=== PATIENT | female | born 1965 | race Caucasian/White ===

== ENCOUNTER 2016-12-04 15:57 | Emergency (ER) | payer MEDICAID, MEDICARE ==
[2016-12-04 16:56] LABS: Bilirubin Negative (Negative); Blood, Urine Negative (Negative); Clarity Slightly Cloudy (Clear); Glucose, Urine (Dipstick) Negative (Negative); Leukocyte Negative (Negative); Nitrite Negative (Negative); Protein, Urine (Dipstick) Negative (Neg-Trace); Specific Gravity, Urine 1.025 (1.005-1.030); Urobilinogen 0.2 mg/dL (0.2-1.0); pH, Urine 5.5 (5.0-9.0)
[2016-12-04] MEDS ORDERED: Ibuprofen 800 MG TAB ONE (17:25)
[2016-12-04] MEDS ORDERED: traMADol HCl 50 MG TAB ONE (17:25)
[2016-12-04] MEDS ORDERED: traMADol HCl 50 MG TAB PO SCH (17:30)
[2016-12-04] MEDS ORDERED: Ibuprofen 800 MG TAB PO SCH (17:30)
--- NOTE | 2016-12-04 17:42 | RAD ---
CHEST TWO VIEWS: Date: 12-04-16 Comparison: 04-19-16 FINDINGS: The heart seems slightly larger but still normal in size. There is no vascular congestion, edema, fo toi pulmonary infiltrate or effusion. At most, there might be a little atelectasis in the left costo phrenic angle. I see no pneumothorax. No fractures were appreciated at this time. Subtle rib fractur es could be easily missed on this study. IMPRESSION: No acute thoracic finding. POS: HOME
== END 2016-12-04 17:46 | disposition home or self-care (01) ==
LOC: BURERS 15:57
DX: S20.211A Contusion of right front wall of thorax, initial encounter (principal); I10 Essential (primary) hypertension; G43.909 Migraine, unspecified, not intractable, without status migrainosus; F31.9 Bipolar disorder, unspecified; W18.30XA Fall on same level, unspecified, initial encounter; Y93.02 Activity, running; Y99.8 Other external cause status
CPT/HCPCS: 71020; 81003

== ENCOUNTER 2017-04-27 14:03 | Emergency (ER) | payer MEDICARE ==
[2017-04-27 14:23] LABS: #Basophils 0.1 thou/uL (0.0-0.2); #Eosinphils 0.1 thou/uL (0.0-0.7); #Lymphocytes 2.6 thou/uL (1.20-3.40); #Monocytes 0.7 thou/uL (0.11-0.59); #Neutrophils 3.7 thou/uL (1.40-6.50); %Basophils 1.9 % (0.0-1.0); %Eosinophils 1.7 % (0.0-10.0); %Lymphocytes 35.8 % (21.0-51.0); %Monocytes 9.4 % (0.0-10.0); %Neutrophils 51.2 % (42.0-75.0); Hemoglobin 16.6 g/dL (12.0-16.0); Mean Corpuscular HGB CONC 34.4 g/dL (32.0-36.0); Mean Corpuscular Hemoglobin 31.2 pg (27.0-31.0); Mean Corpuscular Volume 90.8 fl (81.0-99.0); Mean Platelet Volume 6.8 fL (7.4-10.4); Platelet Count 307 thou/uL (130-400); RBC Distribution Width 11.4 % (11.5-14.5); Red Blood Cell (RBC) Count 5.32 mill/uL (4.20-5.40); White Blood Cell (WBC) Count 7.2 thou/uL (4.8-10.8)
[2017-04-27] MEDS ORDERED: Ondansetron HCl/PF 4 MG/2 ML Vial ONE (14:26)
[2017-04-27 14:37] LABS: ALT (SGPT) 19 U/L (8-55); AST (SGOT) 20 U/L (5-34); Albumin 4.1 g/dL (3.5-5.0); Alkaline Phosphatase 89 U/L (40-150); Anion Gap 12 mmol/L (10-20); BUN (Urea Nitrogen) 10 mg/dL (9.8-20.1); Bilirubin, Total 0.5 mg/dL (0.2-1.2); Calc. Creatinine Clearance 0 mL/min (70-130); Calcium 9.4 mg/dL (7.8-10.44); Carbon Dioxide 25 mmol/L (22-29); Chloride 106 mmol/L (98-107); Estimated GFR-MDRD 76; Globulin 3.4 g/dL (2.4-3.5); Glucose 68 mg/dL (70-105); Potassium 4.3 mmol/L (3.5-5.1); Protein, Total 7.5 g/dL (6.0-8.3); Sodium 139 mmol/L (136-145)
[2017-04-27 14:46] LABS: CKMB 0.4 ng/mL (0-6.6); Troponin I Less than 0.010 ng/mL (< 0.028)
[2017-04-27] MEDS ORDERED: Pantoprazole 40 MG VIAL ONE (15:50)
--- NOTE | 2017-04-27 16:14 | RAD ---
PORTABLE CHEST: Date: 04/27/17 An AP portable film at 1409 hours is compared with the 12/04/16 study. The heart remains normal in size and the lungs are clear. No infiltrate, effusion, or vascular conge stion seen. The mediastinum appears normal and the trachea is midline. IMPRESSION: No acute thoracic findings. POS: HOME
[2017-04-27 17:21] LABS: Troponin I Less than 0.010 ng/mL (< 0.028)
[2017-04-27] MEDS ORDERED: Lidocaine Viscous Sol 2% 15 ml UD Cup ONE (17:30)
[2017-04-27] MEDS ORDERED: Mag-Al Plus 1200 MG/1200 MG/120 MG/30 ML UDCUP ONE (17:30)
== END 2017-04-27 17:38 | disposition home or self-care (01) ==
LOC: BURERS 14:03
DX: R07.89 Other chest pain (principal); E66.9 Obesity, unspecified; I10 Essential (primary) hypertension; F41.9 Anxiety disorder, unspecified; F31.9 Bipolar disorder, unspecified; Z79.899 Other long term (current) drug therapy; Z87.442 Personal history of urinary calculi
CPT/HCPCS: 36415; 71010; 80053; 82553; 84484; 85025; 93005; 96365; 96375; C9113; J2405

== ENCOUNTER 2017-06-01 13:39 | Outpatient (CLI) | payer MEDICARE ==
--- NOTE | 2017-06-01 16:29 | RAD ---
THREE VIEWS OF THE LUMBAR SPINE 06/01/17 COMPARISON: None. HISTORY: Sacroiliitis. FINDINGS: Three views of the lumbosacral spine shows grade I retrolisthesis of L3 on L4. The intervertebral di scs are narrowed and moderate osteophytes are seen throughout the lumbar spine. Slight scoliotic cur vature of the spine is secondary to degenerative change. IMPRESSION: Moderate degenerative change of the lumbar spine without acute osseous abnormality. POS: [facility]
== END 2017-06-01 13:40 | disposition home or self-care (01) ==
LOC: BURRAD 13:39
PROVIDERS: ATTEND Nurse Practitioner
DX: M46.1 Sacroiliitis, not elsewhere classified (principal); M47.896 Other spondylosis, lumbar region
CPT/HCPCS: 72100

== ENCOUNTER 2017-11-07 13:23 | Emergency (ER) | payer MEDICARE | END 2017-11-07 14:07 | disposition home or self-care (01) | LOC: BURERS 13:23 | DX: R55 Syncope and collapse (principal); T44.7X5A Adverse effect of beta-adrenoreceptor antagonists, initial encounter; E66.9 Obesity, unspecified; F31.9 Bipolar disorder, unspecified; F41.9 Anxiety disorder, unspecified; I10 Essential (primary) hypertension; Z87.442 Personal history of urinary calculi; G43.909 Migraine, unspecified, not intractable, without status migrainosus ==

== ENCOUNTER 2018-03-23 18:23 | Emergency (ER) | payer MEDICARE ==
[2018-03-23] MEDS ORDERED: diphenhydrAMINE 50 MG/ML VIAL ONE (18:59)
== END 2018-03-23 19:32 | disposition home or self-care (01) ==
LOC: BURERS 18:23
DX: K90.49 Malabsorption due to intolerance, not elsewhere classified (principal); I10 Essential (primary) hypertension; G43.909 Migraine, unspecified, not intractable, without status migrainosus; E66.9 Obesity, unspecified; F41.9 Anxiety disorder, unspecified; F31.9 Bipolar disorder, unspecified
CPT/HCPCS: 96372; J1200

== ENCOUNTER 2019-02-09 20:07 | Emergency (ER) | payer MEDICARE ==
[2019-02-09] MEDS ORDERED: methylPREDNISolone Sod Succ/PF 125 MG/2 ML VIAL ONE (20:38)
[2019-02-09] MEDS ORDERED: traMADol HCl 50 MG TAB ONE (20:38)
== END 2019-02-09 20:52 | disposition home or self-care (01) ==
LOC: BURERS 20:07
DX: S39.012A Strain of muscle, fascia and tendon of lower back, initial encounter (principal); G43.909 Migraine, unspecified, not intractable, without status migrainosus; E66.9 Obesity, unspecified; I10 Essential (primary) hypertension; F31.9 Bipolar disorder, unspecified; F41.9 Anxiety disorder, unspecified; X58.XXXA Exposure to other specified factors, initial encounter
CPT/HCPCS: 96372; 99283; J2930

== ENCOUNTER 2019-02-14 17:34 | Emergency (ER) | payer MEDICARE ==
[2019-02-14 18:34] LABS: ALT (SGPT) 32 U/L (8-55); AST (SGOT) 25 U/L (5-34); Albumin 4.3 g/dL (3.5-5.0); Alkaline Phosphatase 91 U/L (40-150); Anion Gap 17 mmol/L (10-20); BUN (Urea Nitrogen) 12 mg/dL (9.8-20.1); Bilirubin, Total 0.8 mg/dL (0.2-1.2); Calc. Creatinine Clearance 0 mL/min (70-130); Carbon Dioxide 22 mmol/L (22-29); Chloride 103 mmol/L (98-107); Eosinophils 5 % (0-10); Estimated GFR-MDRD 69; Globulin 3.1 g/dL (2.4-3.5); Glucose 111 mg/dL (70-105); Hemoglobin 17.3 g/dL (12.0-16.0); Lymphocytes 29 % (21-51); MDiff Complete? YES; Mean Corpuscular HGB CONC 31.4 g/dL (32.0-36.0); Mean Corpuscular Hemoglobin 29.2 pg (27.0-31.0); Mean Corpuscular Volume 92.9 fL (78.0-98.0); Mean Platelet Volume 6.7 fL (7.4-10.4); Monocytes 7 % (0-10); Neutrophil 59 % (42-75); Platelet Count 322 thou/uL (130-400); Potassium 4.3 mmol/L (3.5-5.1); Protein, Total 7.4 g/dL (6.0-8.3); RBC Distribution Width 12.5 % (11.5-14.5); Red Blood Cell (RBC) Count 5.91 mill/uL (4.20-5.40); Sodium 138 mmol/L (136-145); White Blood Cell (WBC) Count 7.2 thou/uL (4.8-10.8)
== END 2019-02-14 19:23 | disposition home or self-care (01) ==
LOC: BURERS 17:34
DX: R55 Syncope and collapse (principal); I10 Essential (primary) hypertension; F41.9 Anxiety disorder, unspecified; F31.9 Bipolar disorder, unspecified; Z87.442 Personal history of urinary calculi; Z79.899 Other long term (current) drug therapy
CPT/HCPCS: 80053; 83605; 84484; 85025; 93005; 96360

== ENCOUNTER 2019-08-23 04:39 | Emergency (ER) | payer MEDICARE ==
[2019-08-23 04:56] LABS: Bilirubin Small (Negative); Blood, Urine Large (Negative); Clarity Turbid (Clear); Glucose, Urine (Dipstick) Negative (Negative); Leukocyte Negative (Negative); Nitrite Negative (Negative); Protein, Urine (Dipstick) 100 mg/dL (Neg-Trace)
[2019-08-23 05:00] LABS: Bacteria/HPF 1+ HPF (None Seen); RBC/HPF Greater than 50 HPF (0-3); Squamous Epithelial 0-3 HPF (0-3)
[2019-08-23] MEDS ORDERED: Ondansetron ODT 4 MG TAB ONE (05:22)
[2019-08-23] MEDS ORDERED: Fentanyl 100 MCG/2 ML VIAL ONE (05:27)
[2019-08-23] MEDS ORDERED: Ketorolac Tromethamine 30 MG/ML VIAL ONE (05:27)
[2019-08-23] MEDS ORDERED: Dicyclomine 20 MG TAB ONE (05:33)
--- NOTE | 2019-08-23 07:54 | CT ---
PRELIMINARY REPORT/[facility]/EMERGENCY AFTER HOURS PROCEDURE: EXAM: CT Abdomen and Pelvis Without Intravenous Contrast CLINICAL HISTORY: FLANK PAIN, HX OF KIDNEY STONES, TECHNIQUE: Axial computed tomography images of the abdomen and pelvis without intravenous contrast. CONTRAST: None. COMPARISON: None provided. FINDINGS: LUNG BASES: No basilar airspace consolidation or pleural effusion. LIVER: There is fatty infiltration of liver. GALLBLADDER AND BILE DUCTS: Gallbladder is absent. PANCREAS: Unremarkable. SPLEEN: Unremarkable. ADRENAL GLANDS: Unremarkable. KIDNEYS, URETERS, AND BLADDER: There are no renal calculi. There is mild right hydroureteronephrosis secondary to a 3 mm proximal ureteric calculus. Bladder is decompressed. STOMACH AND BOWEL: No intestinal obstruction. Gastric bypass surgery is present. APPENDIX: Appendix is within normal limits. PERITONEUM: No free fluid. No free air. LYMPH NODES: No lymphadenopathy. REPRODUCTIVE: Uterus is not identified. VASCULATURE: No aortic aneurysm. ABDOMINAL WALL AND SOFT TISSUES: There are at least 2 separate ventral hernias within the lower abdom en and pelvis. The more superior ventral hernia is bilobed in appearance and contains segment of simental sverse colon as well as fat. Within the anterior lower pelvis is fat-containing ventral hernia. BONES: No fracture or suspicious osseous abnormality. IMPRESSION: Mild right hydroureteronephrosis secondary to a 3 mm proximal ureteric calculus. Hepatic steatosis. V entral hernias. Prior gastric bypass surgery. ELECTRONICALLY SIGNED BY: Madalyn Workman MD Aug 23, 2019 6:25:54 AM [employer] This report is intended for review by the ordering physician only, in accordance of law. If you recei ve this report in error, please call [facility] at [phone]. FINAL REPORT CT OF THE ABDOMEN AND PELVIS WITHOUT CONTRAST: DATE: 08/23/2019. FINDINGS: There is a 7-8 mm calculus in the mid right ureter at the L4-L5 level that causes mild right hydronep hrosis. I see no other renal calculi remaining on either side. No renal masses were apparent. The lung bases are clear. A prior gastric surgery is noted. The liver, spleen, pancreas, adrenal gl ands, and abdominal aorta appear normal within the limitations of a noncontrast study. There has bee n a prior cholecystectomy. The bowel shows no distention, wall thickening, or acute changes. There is an anterior abdominal wal l hernia that is to the left of midline. A considerable amount of colon and mesenteric fat protrude through the defect into the soft tissues of the anterior abdomen. There is no sign of obstruction or dilation here. No free air or free fluid was seen. CT of the pelvis shows no pelvis masses, fluid collections, or inflammatory changes. Degenerative ch anges are seen in the spine and scoliosis is noted as well. IMPRESSION: 1. A 7-8 mm right ureteral calculus at the L4-L5 level causing mild right hydronephrosis. 2. Defect in the left anterior abdominal wall with large bowel and mesenteric fat protruding through the defect into the soft tissues of the anterior abdominal wall. There is no obstruction. Report in agreement with the preliminary report given by [facility]. POS: HOME
== END 2019-08-23 06:00 | disposition home or self-care (01) ==
LOC: BURERS 04:39
DX: N13.2 Hydronephrosis with renal and ureteral calculous obstruction (principal); E66.9 Obesity, unspecified; I10 Essential (primary) hypertension; G43.909 Migraine, unspecified, not intractable, without status migrainosus; F41.9 Anxiety disorder, unspecified; F31.9 Bipolar disorder, unspecified; Z79.899 Other long term (current) drug therapy
CPT/HCPCS: 74176; 81003; 81015; 96372; J1885; J3010; Q0162